=== PATIENT | female | born 1990 | race American Indian/Alaskan Native ===

== ENCOUNTER 2019-10-26 14:15 | Emergency (ER) | payer BC ==
--- NOTE | 2019-10-26 15:46 | Event Note ---
{null, ED Screening Note ED Screening Note: 29 yo female with hx of migraine SULLIVAN presents with 3 days of SULLIVAN This initial assessment/diagnostic orders/clinical plan/treatment(s) is/are subject to change based on patients health status, clinical progression and re- assessment by fellow clinical providers in the ED. Further treatment and workup at subsequent clinical providers discretion. Patient/guardian urged not to elope from the ED as their condition may be serious if not clinically assessed and managed. Initial orders include: treatment room }
[2019-10-26] MEDS ORDERED: fentaNYL 100 MCG/2 ML INJ IM ONE (21:49)
[2019-10-26] MEDS ORDERED: BUTALB/ACETAMINOPHEN/CAFFEINE TAB PO ONE (21:49)
[2019-10-26] MEDS ORDERED: ONDANSETRON 4 MG/2 ML INJ IM ONE (21:49)
--- NOTE | 2019-10-26 21:55 | Emergency Department Report ---
{null, HPI - General Chief Complaint: Headache Time Seen by Provider: 10/26/19 21:44 - HPI HPI: Room 32 The patient is a 29-year-old female present with a chief complaint of headache. Patient states for the past 3 days she has had a "migraine" headache from the left posterior side of her head radiating to the front. Patient admits to nausea but denies vomiting. Patient admits to blurred vision in the left eye and decreased hearing in the left ear. Patient denies any preceding trauma or history of fever. Patient states she was not formally diagnosed with migraines by a neurologist ED Past Medical Hx - Past Medical History Previous Medical History?: Yes Hx Headaches / Migraines: Yes Hx Asthma: Yes Additional medical history: Anemia - Surgical History Past Surgical History?: No - Family History Family history: no significant - Social History Smoking Status: Never Smoker Substance Use Type: None (Denies illicit drug use) - Medications Home Medications: Home Medications Medication Instructions Recorded Confirmed Last Taken Type Butalb/Acetamin/Caff 50-325-40 1 - 2 tab PO Q8HR PRN #20 tablet 10/26/19 Unkno wn Rx [Fioricet 50-325-40] ED Review of Systems ROS: Stated complaint: MIGRAINE X3D Other details as noted in HPI Constitutional: denies: fever Eyes: vision change ENT: hearing loss Respiratory: no symptoms reported Cardiovascular: denies: chest pain Endocrine: no symptoms reported Gastrointestinal: nausea. denies: vomiting Neurological: headache Physical Exam - Physical Exam Vital Signs: Vital Signs 10/26/19 15:45 Temperature 98.2 F Pulse Rate 81 Blood Pressure 130/79 O2 Sat by Pulse 100 Oximetry Physical Exam: GENERAL: The patient is well-developed well-nourished female sitting on chair in no acute distress [] HEENT: Normocephalic. Atraumatic. Extraocular motions are intact. Patient has moist mucous membranes. Left TM clear NECK: Supple. No meningitic signs are noted. Trachea midline CHEST/LUNGS: Clear to auscultation. There is no respiratory distress noted. HEART/CARDIOVASCULAR: Regular. There is no tachycardia. There is no gallop rub or murmur. ABDOMEN: Abdomen is soft, nontender. Patient has normal bowel sounds. There is no abdominal distention. SKIN: There is no rash. There is no edema. There is no diaphoresis. NEURO: The patient is awake, alert, and oriented. The patient is cooperative. The patient has no focal neurologic deficits. The patient has normal speech. Cranial nerves II through XII grossly intact, no drift MUSCULOSKELETAL: There is no evidence of acute injury. ED Course Vital Signs 10/26/19 15:45 Temperature 98.2 F Pulse Rate 81 Blood Pressure 130/79 O2 Sat by Pulse 100 Oximetry ED Medical Decision Making - Radiology Data Radiology results: report reviewed (CT head), image reviewed (CT head) Findings [facility] [address] [place] [address] Cat Scan Report Signed Patient: JUANCARLOS LUCAS MR#: [id number] 65 : 1990 Acct:[id number] Age/Sex: 29 / F ADM Date: 10/26/19 Loc: ED Attending Dr: Ordering Physician: KAYLA LIN MD Date of Service: 10/26/19 Procedure(s): CT head/brain wo con Accession Number(s): [id number] cc: KAYLA LIN MD CT HEAD WITHOUT CONTRAST INDICATION / CLINICAL INFORMATION: Left-sided headache. Headache for 3 days. No injury. TECHNIQUE: All CT scans at this location are performed using CT dose reduction for ALARA by means of automated exposure control. COMPARISON: None available. FINDINGS: HEMORRHAGE: None. EXTRA-AXIAL SPACES: Normal in size and morphology for the patient's age. VENTRICULAR SYSTEM: Normal in size and morphology for the patient's age. CEREBRAL PARENCHYMA: No significant abnormality. No acute territorial infarct. MIDLINE SHIFT OR HERNIATION: None. CEREBELLUM / BRAINSTEM: No significant abnormality. ORBITS: Normal as visualized. SOFT TISSUES of HEAD: No significant abnormality. CALVARIUM: No significant abnormality. PARANASAL SINUSES / MASTOID AIR CELLS: Normal as visualized. ADDITIONAL FINDINGS: None. IMPRESSION: 1. No acute intracranial abnormality. Signer Name: Genie Tabares MD Signed: 10/26/2019 10:21 PM Workstation Name: [id number] Transcribed By: DT Dictated By: Dave Tabares MD Electronically Authenticated By: Dave Tabares MD Signed Date/Time: 10/26/192220 DD/ 19 TD/TT: - Differential Diagnosis Headache, migraine, intracranial hemorrhage, intracranial mass Critical care attestation.: If time is entered above; I have spent that time in minutes in the direct care of this critically ill patient, excluding procedure time. ED Disposition Clinical Impression: Headache Disposition: DC- TO HOME OR SELFCARE Is pt being admited?: No Does the pt Need Aspirin: No Condition: Stable Instructions: Acute Headache (ED), Migraine Headache (ED) Additional Instructions: Return to the emergency department should you develop worsening symptoms, inability to tolerate food or liquids, high fever or any other concerns Prescriptions: Butalb/Acetamin/Caff 50-325-40 [Fioricet 50-325-40] 1 - 2 tab PO Q8HR PRN #20 tablet PRN Reason: Headache Referrals: DIA MCKINNEY MD [Staff Physician] - 3-5 Days (Dr Mckinney is a neurologist. Please follow-up with him for further evaluation) PAUL DAVIES MD [Staff Physician] - 3-5 Days (Dr. Davies is a primary physician. Please follow-up with him to be established as a patient) }
--- NOTE | 2019-10-26 22:25 | Cat Scan Report ---
{null, CT HEAD WITHOUT CONTRAST INDICATION / CLINICAL INFORMATION: Left-sided headache. Headache for 3 days. No injury. TECHNIQUE: All CT scans at this location are performed using CT dose reduction for ALARA by means of automated e xposure control. COMPARISON: None available. FINDINGS: HEMORRHAGE: None. EXTRA-AXIAL SPACES: Normal in size and morphology for the patient's age. VENTRICULAR SYSTEM: Normal in size and morphology for the patient's age. CEREBRAL PARENCHYMA: No significant abnormality. No acute territorial infarct. MIDLINE SHIFT OR HERNIATION: None. CEREBELLUM / BRAINSTEM: No significant abnormality. ORBITS: Normal as visualized. SOFT TISSUES of HEAD: No significant abnormality. CALVARIUM: No significant abnormality. PARANASAL SINUSES / MASTOID AIR CELLS: Normal as visualized. ADDITIONAL FINDINGS: None. IMPRESSION: 1. No acute intracranial abnormality. Signer Name: Genie Tabares MD Signed: 10/26/2019 10:21 PM Workstation Name: [id number] }
[2019-10-26 23:13] VITALS: BP 132/79
== END 2019-10-26 23:15 | disposition home or self-care (01) ==
LOC: ED 14:15
DX: G43.909 Migraine, unspecified, not intractable, without status migrainosus (principal); J45.909 Unspecified asthma, uncomplicated; Z79.899 Other long term (current) drug therapy
CPT/HCPCS: 70450; 96372; 99283; J2405; J3010